=== PATIENT | male | born 1960 | race Caucasian/White ===

== ENCOUNTER 2016-10-04 10:25 | Emergency (ER) | payer MEDICARE, MEDICAID ==
[2016-10-04 10:39] VITALS: BP 180/101
--- NOTE | 2016-10-04 11:03 | EDM.PDOC ---
ED HPI GENERAL MEDICAL PROBLEM - General Chief Complaint: Lower Extremity Injury/Pain Stated Complaint: LEFT FOOT SWOLLEN/INFECTED Time Seen by Provider: 10/04/16 10:57 Source of Information: Reports: Patient History Limitations: Reports: No Limitations - History of Present Illness INITIAL COMMENTS - FREE TEXT/NARRATIVE: 56 yo male presents with open wound to the right great toe. Has drainage in between toes bilaterally. States that it has been there for " a couple days." unable to give specific time. Denies pain however states that foot is swollen. NO other complaints. Onset: Gradual, Unknown/Unsure Duration: Constant Location: Reports: Lower Extremity, Right Improves with: Reports: None Worsens with: Reports: None Associated Symptoms: Reports: No Other Symptoms Right Feet Pain Score (Numeric/FACES): 4 - Related Data Allergies Allergy/AdvReac Type Severity Reaction Status Date / Time Penicillins Allergy Cannot Verified 11/20/15 20:23 Remember Home Meds: Home Meds Aspirin [Halfprin] 81 mg PO BRK 11/20/15 [History] Metoprolol Succinate [Toprol XL 100mg] 100 mg PO DAILY 11/20/15 [History] Metoprolol Succinate [Toprol XL 50mg] 50 mg PO DAILY 11/20/15 [History] Potassium Chloride [Klor-Con] 20 meq PO BID 11/20/15 [History] amLODIPine [Norvasc] 10 mg PO BEDTIME 11/20/15 [History] atorvaSTATin [Lipitor] 10 mg PO BEDTIME 11/20/15 [History] Magnesium Oxide 500 mg PO BIDM #14 tablet 11/24/15 [Rx] Phosphorus #1 [Neutra-Phos] 500 mg PO BID #14 tablet 11/24/15 [Rx] Past Medical History Cardiovascular History: Reports: Heart Murmur, High Cholesterol, Hypertension Respiratory History: Reports: None Gastrointestinal History: Reports: Other (See Below) Other Gastrointestinal History: intractable nausea 11/20/15 Musculoskeletal History: Reports: Fracture Neurological History: Reports: Other (See Below) Other Neuro History: mentally handicapped. ] Psychiatric History: Reports: Anxiety, Developmental Delay - Past Surgical History Respiratory Surgical History: Reports: None Musculoskeletal Surgical History: Reports: None - History Comment History Comment: recent dx hypokalemia with potassium supplementation Social & Family History - Tobacco Use Smoking Status *Q: Never Smoker Second Hand Smoke Exposure: No - Caffeine Use Caffeine Use: Reports: Soda - Recreational Drug Use Recreational Drug Use: No Review of Systems - Review of Systems Review Of Systems: ROS reveals no pertinent complaints other than HPI. ED EXAM, GENERAL - Physical Exam Exam: See Below Exam Limited By: No Limitations General Appearance: Alert, WD/WN, No Apparent Distress Respiratory/Chest: No Respiratory Distress, Lungs Clear, Normal Breath Sounds, No Accessory Muscle Use, Chest Non-Tender, Wheezing (mild) Cardiovascular: Normal Peripheral Pulses, Regular Rate, Rhythm, No Edema, No Gallop, No JVD, No Murmur, No Rub Extremities: Normal Inspection, Normal Range of Motion, Non-Tender, Normal Capillary Refill, Pedal Edema (1+) Neurological: Alert, Oriented, CN II-XII Intact, Normal Cognition, Normal Gait, No Motor/Sensory Deficits Skin Exam: Warm, Dry, Normal Color, No Rash, Erythema (in between toes), Wound/ Incision (open wound to medial great toe, appears to be vesicle that burst. no drainage noted. ) Course - Vital Signs Last Recorded V/S: Last Vital Signs Temp 97.2 F 10/04/16 10:38 Pulse 88 10/04/16 10:38 Resp 16 10/04/16 10:38 BP 180/101 H 10/04/16 10:38 Pulse Ox 98 10/04/16 10:38 Departure - Departure Time of Disposition: 11:09 Disposition: Home, Self-Care 01 Condition: Good Clinical Impression: Tinea pedis of right foot - Discharge Information Instructions: Athlete's Foot, [id number], Personal Hygiene Forms: ED Department Discharge Additional Instructions: Make sure to keep your feet clean and dry. Apply the ointment to the open wound on your right big toe. Apply the cream in between all your toes. Return for worsening symptoms.
[2016-10-04] MEDS ORDERED: Bacitracin Oint 1 GM U/D Packet TOP ONE (11:05)
== END 2016-10-04 11:18 | disposition home or self-care (01) ==
LOC: DL.ED 10:25
DX: B35.3 Tinea pedis (principal); E78.00 Pure hypercholesterolemia, unspecified; I10 Essential (primary) hypertension; Z88.0 Allergy status to penicillin; Z79.82 Long term (current) use of aspirin; Z79.899 Other long term (current) drug therapy
CPT/HCPCS: 99282; 99283

== ENCOUNTER 2017-07-29 23:34 | Emergency (ER) | payer MEDICARE, MEDICAID ==
[2017-07-30] MEDS ORDERED: Sodium Chloride 0.9% 1,000 ML IV ONE (01:04)
[2017-07-30] MEDS ORDERED: Metoclopramide 10 MG/2 ML SDV IVPUSH ONE (01:05)
[2017-07-30 01:10] VITALS: BP 138/88
[2017-07-30] MEDS ORDERED: LORazepam 2 MG/ML Syringe IVPUSH ONE (01:12)
[2017-07-30 01:49] LABS: CHLORIDE,CL 99 mmol/L (101-111); SODIUM,NA 135 mmol/L (135-145)
[2017-07-30] MEDS ORDERED: Iopamidol 612 MG/ML 75 ML Bottle IVPUSH ONE (01:54)
--- NOTE | 2017-07-30 03:14 | EDM.PDOC ---
ED HPI GENERAL MEDICAL PROBLEM - General Chief Complaint: Gastrointestinal Problem Stated Complaint: SICK [id number] Time Seen by Provider: 07/30/17 01:15 Source of Information: Reports: Patient, Family History Limitations: Reports: Other (cognitive impairment) - History of Present Illness INITIAL COMMENTS - FREE TEXT/NARRATIVE: ED with nephew, reports patient has been "sick since yesterday, frequent retching. Patient hx of "mental handicap. Lives with parents, who are in poor health. Limited medical hx known. - Related Data Allergies Allergy/AdvReac Type Severity Reaction Status Date / Time Penicillins Allergy Cannot Verified 07/30/17 01:01 Remember Home Meds: Home Meds Aspirin [Halfprin] 81 mg PO BRK 11/20/15 [History] Metoprolol Succinate [Toprol XL 100mg] 100 mg PO DAILY 11/20/15 [History] Metoprolol Succinate [Toprol XL 50mg] 50 mg PO DAILY 11/20/15 [History] Potassium Chloride [Klor-Con] 20 meq PO BID 11/20/15 [History] amLODIPine [Norvasc] 10 mg PO BEDTIME 11/20/15 [History] atorvaSTATin [Lipitor] 10 mg PO BEDTIME 11/20/15 [History] Magnesium Oxide 500 mg PO BIDM #14 tablet 11/24/15 [Rx] Phosphorus #1 [Neutra-Phos] 500 mg PO BID #14 tablet 11/24/15 [Rx] Past Medical History Cardiovascular History: Reports: Heart Murmur, High Cholesterol, Hypertension Respiratory History: Reports: None Gastrointestinal History: Reports: Other (See Below) Other Gastrointestinal History: intractable nausea 11/20/15 Musculoskeletal History: Reports: Fracture Neurological History: Reports: Other (See Below) Other Neuro History: mentally handicapped Psychiatric History: Reports: Anxiety, Developmental Delay - Past Surgical History Respiratory Surgical History: Reports: None Musculoskeletal Surgical History: Reports: None - History Comment History Comment: recent dx hypokalemia with potassium supplementation Social & Family History - Family History Family Medical History: Noncontributory - Tobacco Use Smoking Status *Q: Unknown Ever Smoked - Caffeine Use Caffeine Use: Reports: Soda - Recreational Drug Use Recreational Drug Use: No ED ROS GENERAL - Review of Systems Review Of Systems: See Below Constitutional: Reports: Decreased Appetite HEENT: Reports: No Symptoms Respiratory: Reports: No Symptoms Cardiovascular: Reports: No Symptoms GI/Abdominal: Reports: Decreased Appetite, Vomiting : Reports: No Symptoms Musculoskeletal: Reports: No Symptoms Skin: Reports: No Symptoms Neurological: Reports: No Symptoms ED EXAM, GI/ABD - Physical Exam Exam: See Below Exam Limited By: No Limitations General Appearance: Alert, Moderate Distress (retching) Ears: Normal External Exam, Normal TMs Nose: Normal Inspection Throat/Mouth: Normal Inspection, Normal Lips Head: Atraumatic, Normocephalic Neck: Normal Inspection, Full Range of Motion Respiratory/Chest: No Respiratory Distress, Lungs Clear, Normal Breath Sounds Cardiovascular: Normal Peripheral Pulses, Regular Rate, Rhythm GI/Abdominal Exam: Tender (RLQ, epigastric). No: Distended, Rigid Back Exam: Normal Inspection, Full Range of Motion. No: CVA Tenderness (L), CVA Tenderness (R) Neurological: Alert, Oriented (person) Skin Exam: Warm, Dry, Intact, Normal Color Course - Vital Signs Last Recorded V/S: Last Vital Signs Temp 97.7 F 07/30/17 01:09 Pulse 79 07/30/17 01:09 Resp 20 07/30/17 01:09 BP 138/88 07/30/17 01:09 Pulse Ox 96 07/30/17 01:09 - Orders/Labs/Meds Orders: Active Orders 24 hr Category Date Time Status Blood Glucose Check, Bedside [RC] ONETIME Care 07/30/17 01:01 Active EKG Documentation Completion [RC] URGENT Care 07/30/17 01:01 Active Labs: Laboratory Tests 07/30/17 07/30/17 07/30/17 Range/Units 01:18 01:18 01:18 WBC 19.1 H (5.0-10.0) 10^3/uL RBC 5.16 (4.6-6.2) 10^6/uL Hgb 16.0 D (14.0-18.0) g/dL Hct 45.1 (40.0-54.0) % MCV 87.4 (80-100) fL MCH 31.0 (27.0-34.0) pg MCHC 35.5 H (33.0-35.0) g/dL Plt Count 193 (150-450) 10^3/uL Neut % (Auto) 89.9 H (42.2-75.2) % Lymph % (Auto) 3.3 L (20.5-50.1) % [place] % (Auto) 6.6 (2-8) % Eos % (Auto) 0.1 L (1.0-3.0) % Baso % (Auto) 0.1 (0.0-1.0) % Sodium 135 (135-145) mmol/L Potassium 3.7 (3.6-5.0) mmol/L Chloride 99 L (101-111) mmol/L Carbon Dioxide 27.0 (21.0-31.0) mmol/L Anion Gap 12.7 BUN 14 (7-18) mg/dL Creatinine 1.1 (0.6-1.3) mg/dL Est Cr Clr Drug Dosing 78.35 mL/min Estimated GFR (MDRD) > 60 BUN/Creatinine Ratio 12.72 Glucose 162 H (74-105) mg/dL POC Glucose (70-105) mg/dl Lactic Acid 1.6 (0.5-2.2) mmol/L Calcium 8.9 (8.4-10.2) mg/dl Magnesium (1.8-2.5) mg/dL Total Bilirubin 1.2 H (0.2-1.0) mg/dL AST 26 (10-42) IU/L ALT 25 (10-60) IU/L Alkaline Phosphatase 119 (42-121) IU/L Troponin I < 0.02 (0.00-0.02) ng/ml Total Protein 8.3 H (6.7-8.2) g/dl Albumin 4.7 (3.2-5.5) g/dl Globulin 3.6 Albumin/Globulin Ratio 1.31 Amylase 55 (28-100) U/L Lipase 20 L (22-51) U/L 07/30/17 07/30/17 Range/Units 01:18 01:35 WBC (5.0-10.0) 10^3/uL RBC (4.6-6.2) 10^6/uL Hgb (14.0-18.0) g/dL Hct (40.0-54.0) % MCV (80-100) fL MCH (27.0-34.0) pg MCHC (33.0-35.0) g/dL Plt Count (150-450) 10^3/uL Neut % (Auto) (42.2-75.2) % Lymph % (Auto) (20.5-50.1) % [place] % (Auto) (2-8) % Eos % (Auto) (1.0-3.0) % Baso % (Auto) (0.0-1.0) % Sodium (135-145) mmol/L Potassium (3.6-5.0) mmol/L Chloride (101-111) mmol/L Carbon Dioxide (21.0-31.0) mmol/L Anion Gap BUN (7-18) mg/dL Creatinine (0.6-1.3) mg/dL Est Cr Clr Drug Dosing mL/min Estimated GFR (MDRD) BUN/Creatinine Ratio Glucose (74-105) mg/dL POC Glucose 148 H (70-105) mg/dl Lactic Acid (0.5-2.2) mmol/L Calcium (8.4-10.2) mg/dl Magnesium 1.8 (1.8-2.5) mg/dL Total Bilirubin (0.2-1.0) mg/dL AST (10-42) IU/L ALT (10-60) IU/L Alkaline Phosphatase (42-121) IU/L Troponin I (0.00-0.02) ng/ml Total Protein (6.7-8.2) g/dl Albumin (3.2-5.5) g/dl Globulin Albumin/Globulin Ratio Amylase (28-100) U/L Lipase (22-51) U/L Meds: Medications Discontinued Medications Generic Name Dose Route Start Last Admin Trade Name Freq PRN Reason Stop Dose Admin Sodium Chloride 1,000 mls @ 999 mls/hr 07/30/17 01:04 07/30/17 01:27 Normal Saline IV 07/30/17 02:04 999 mls/hr .BOLUS ONE Administration Iopamidol 75 ml 07/30/17 01:54 07/30/17 02:03 Isovue-300 (61%) IVPUSH 07/30/17 01:55 75 ml ONETIME ONE Administration Lorazepam 1 mg 07/30/17 01:12 07/30/17 01:28 Ativan IVPUSH 07/30/17 01:13 1 mg ONETIME ONE Administration Metoclopramide HCl 10 mg 07/30/17 01:05 07/30/17 01:27 Reglan IVPUSH 07/30/17 01:06 10 mg ONETIME ONE Administration - Radiology Interpretation Free Text/Narrative:: CT abdomen and pelvis Acute appendicitis - Re-Assessments/Exams Free Text/Narrative Re-Assessment/Exam: 07/30/17 03:16 Retching stopped following reglan and ativan, patient resting, arouses easily. Family leftafter providing contact #'s. 07/30/17 03:36 Dr Fabiana Garcia accepting of patient in transfer. Tx via [facility]. Departure - Departure Time of Disposition: 04:10 Disposition: DC/Tfer to [facility] 02 Condition: Good Clinical Impression: Appendicitis - Discharge Information Referrals: PCP,None [Primary Care Provider] - Forms: ED Department Discharge - My Orders Last 24 Hours: My Active Orders 07/30/17 01:01 Blood Glucose Check, Bedside [RC] ONETIME EKG Documentation Completion [RC] URGENT - Assessment/Plan Last 24 Hours: My Active Orders 07/30/17 01:01 Blood Glucose Check, Bedside [RC] ONETIME EKG Documentation Completion [RC] URGENT
--- NOTE | 2017-07-31 13:17 | EKG ---
07/30/2017 - SAM WINN - FINDINGS: A 12-lead EKG shows normal sinus rhythm with no significant ST elevation or ST depression noted on this 12-lead EKG. Nonspecific ST-T wave changes mostly on lead II, possible lead misplacement, suggestive of left ventricular hypertrophy. [facility] /[id number]
== END 2017-07-30 04:13 ==
LOC: DL.ED 23:34
DX: K37 Unspecified appendicitis (principal); E78.00 Pure hypercholesterolemia, unspecified; I10 Essential (primary) hypertension; Z88.0 Allergy status to penicillin; Z79.82 Long term (current) use of aspirin; Z79.899 Other long term (current) drug therapy
CPT/HCPCS: 36415; 74178; 80053; 82150; 82962; 83605; 83690; 83735; 84484; 85025; 93005; 96361; 96374; 96375; 99285; J2060; J2765; J7030; Q9967; 93010

== ENCOUNTER 2020-02-08 10:39 | Emergency (ER) | payer MEDICARE, MEDICAID ==
[2020-02-08 11:38] VITALS: BP 143/98; PULSE 128
--- NOTE | 2020-02-08 12:05 | EDM.PDOC ---
ED HPI GENERAL MEDICAL PROBLEM - General Chief Complaint: Gastrointestinal Problem Stated Complaint: UNKNOWN JUST WANTS TO GET CHECKED Time Seen by Provider: 02/08/20 11:50 Source of Information: Reports: Patient History Limitations: Reports: No Limitations - History of Present Illness INITIAL COMMENTS - FREE TEXT/NARRATIVE: This 59 yo male patient reports to the ED due to intermittent nausea/vomiting and abdominal pain. The patient reports his symptoms have been coming and going for the past couple of days. The patient reports he was in the [facility] this morning for a blood pressure check, but did not make an appointment to be seen. The patient reports his friends advised him to come to the ED for evaluation and treatment. Onset Date: 02/06/20 Duration: Intermittent Location: Reports: Abdomen Quality: Reports: Other Severity: Moderate Improves with: Reports: None Worsens with: Reports: None Context: Reports: Other Associated Symptoms: Reports: Nausea/Vomiting - Related Data Allergies Allergy/AdvReac Type Severity Reaction Status Date / Time Penicillins Allergy Cannot Verified 02/08/20 11:45 Remember Home Meds: Home Meds Aspirin [Halfprin] 81 mg PO BRK 11/20/15 [History] Metoprolol Succinate [Toprol XL 100mg] 100 mg PO DAILY 11/20/15 [History] Metoprolol Succinate [Toprol XL 50mg] 50 mg PO DAILY 11/20/15 [History] Potassium Chloride [Klor-Con] 20 meq PO BID 11/20/15 [History] amLODIPine [Norvasc] 10 mg PO BEDTIME 11/20/15 [History] atorvaSTATin [Lipitor] 10 mg PO BEDTIME 11/20/15 [History] Magnesium Oxide 500 mg PO BIDM #14 tablet 11/24/15 [Rx] Phosphorus #1 [Neutra-Phos] 500 mg PO BID #14 tablet 11/24/15 [Rx] Past Medical History HEENT History: Reports: Allergic Rhinitis Cardiovascular History: Reports: Heart Murmur, High Cholesterol, Hypertension Respiratory History: Reports: None Gastrointestinal History: Reports: Other (See Below) Other Gastrointestinal History: intractable nausea 11/20/15 Genitourinary History: Reports: None Musculoskeletal History: Reports: Fracture Neurological History: Reports: Other (See Below) Other Neuro History: mentally handicapped Psychiatric History: Reports: Anxiety, Developmental Delay Endocrine/Metabolic History: Reports: None Hematologic History: Reports: None Immunologic History: Reports: None Oncologic (Cancer) History: Reports: None Dermatologic History: Reports: None - Infectious Disease History Infectious Disease History: Reports: None - Past Surgical History Head Surgeries/Procedures: Reports: None Cardiovascular Surgical History: Reports: None Respiratory Surgical History: Reports: None GI Surgical History: Reports: Cholecystectomy Musculoskeletal Surgical History: Reports: None - History Comment History Comment: recent dx hypokalemia with potassium supplementation Social & Family History - Family History Family Medical History: No Pertinent Family History - Tobacco Use Tobacco Use Status *Q: Never Tobacco User - Caffeine Use Caffeine Use: Reports: None - Recreational Drug Use Recreational Drug Use: No ED ROS GENERAL - Review of Systems Review Of Systems: Comprehensive ROS is negative, except as noted in HPI. ED EXAM, GI/ABD - Physical Exam Exam: See Below Exam Limited By: No Limitations General Appearance: Alert, WD/WN, Mild Distress Eyes: Bilateral: Normal Appearance, EOMI Ears: Normal External Exam, Normal Canal, Hearing Grossly Normal, Normal TMs Nose: Normal Inspection, Normal Mucosa, No Blood Throat/Mouth: Normal Inspection, Normal Lips, Normal Teeth, Normal Gums, Normal Oropharynx, Normal Voice, No Airway Compromise Head: Atraumatic, Normocephalic Neck: Normal Inspection, Supple, Non-Tender, Full Range of Motion Respiratory/Chest: No Respiratory Distress, Lungs Clear, Normal Breath Sounds, No Accessory Muscle Use, Chest Non-Tender Cardiovascular: Normal Peripheral Pulses, Regular Rate, Rhythm, No Edema, No Gallop, No JVD, No Murmur, No Rub GI/Abdominal Exam: No Organomegaly, No Distention, No Abnormal Bruit, No Mass, Pelvis Stable, Tender (diffuse abdominal tenderness) (Male) Exam: Deferred Rectal (Males) Exam: Deferred Back Exam: Normal Inspection, Full Range of Motion, NT Extremities: Normal Inspection, Normal Range of Motion, Non-Tender, Normal Capillary Refill, No Pedal Edema Neurological: Alert, Oriented, CN II-XII Intact, Normal Cognition, Normal Gait, Normal Reflexes, No Motor/Sensory Deficits Psychiatric: Normal Affect, Normal Mood Skin Exam: Warm, Dry, Intact, Normal Color, No Rash Lymphatic: No Adenopathy Course - Vital Signs Last Recorded V/S: Last Vital Signs Temp 36.6 C 02/08/20 11:37 Pulse 128 H 02/08/20 11:37 Resp 18 02/08/20 11:37 BP 143/98 H 02/08/20 11:37 Pulse Ox 97 02/08/20 11:37 - Orders/Labs/Meds Orders: Active Orders 24 hr Category Date Time Status CULTURE BLOOD [BC] Stat Lab 02/08/20 11:49 Received Labs: Laboratory Tests 02/08/20 02/08/20 02/08/20 Range/Units 11:49 11:49 11:49 WBC 7.0 (5.0-10.0) 10^3/uL RBC 5.33 (4.6-6.2) 10^6/uL Hgb 16.6 (14.0-18.0) g/dL Hct 46.8 (40.0-54.0) % MCV 87.8 (80-100) fL MCH 31.1 (27.0-34.0) pg MCHC 35.5 H (33.0-35.0) g/dL Plt Count 238 (150-450) 10^3/uL Neut % (Auto) 71.7 (42.2-75.2) % Lymph % (Auto) 14.2 L (20.5-50.1) % [place] % (Auto) 9.8 H (2-8) % Eos % (Auto) 4.0 H (1.0-3.0) % Baso % (Auto) 0.3 (0.0-1.0) % Sodium 136 (136-145) mmol/L Potassium 3.4 L (3.5-5.1) mmol/L Chloride 99 (98-107) mmol/L Carbon Dioxide 25 (21-32) mmol/L Anion Gap 15.4 H (7-13) mEq/L BUN 16 (7-18) mg/dL Creatinine 1.12 (0.70-1.30) mg/dL Est Cr Clr Drug Dosing 72.77 mL/min Estimated GFR (MDRD) > 60 BUN/Creatinine Ratio 14.3 (No establ ref range) Glucose 126 H (74-99) mg/dL Lactic Acid 1.9 (0.4-2.0) mmol/L Calcium 8.9 (8.5-10.1) mg/dL Total Bilirubin 0.8 (0.2-1.0) mg/dL AST 21 (15-37) U/L ALT 40 (16-63) U/L Alkaline Phosphatase 110 (46-116) U/L C-Reactive Protein 0.4 (0.0-0.9) mg/dL Total Protein 8.3 H (6.4-8.2) g/dL Albumin 4.1 (3.4-5.0) g/dL Globulin 4.2 Albumin/Globulin Ratio 1.0 Amylase 56 (25-115) U/L Lipase 109 (73-393) U/L Urine Color (YELLOW) Urine Appearance (CLEAR) Urine pH (5.0-9.0) Ur Specific [place] (1.005-1.030) Urine Protein (NEGATIVE) Urine Glucose (UA) (NEGATIVE) Urine Ketones (NEGATIVE) Urine Occult Blood (NEGATIVE) Urine Nitrite (NEGATIVE) Urine Bilirubin (NEGATIVE) Urine Urobilinogen (0.2-1.0) mg/dL Ur Leukocyte Esterase (NEGATIVE) Urine Opiates Screen (NEGATIVE) Ur Oxycodone Screen (NEGATIVE) Urine Methadone Screen (NEGATIVE) Ur Barbiturates Screen (NEGATIVE) U Tricyclic Antidepress (NEGATIVE) Ur Phencyclidine Scrn (NEGATIVE) Ur Amphetamine Screen (NEGATIVE) U Methamphetamines Scrn (NEGATIVE) Urine MDMA Screen (NEGATIVE) U Benzodiazepines Scrn (NEGATIVE) Urine Cocaine Screen (NEGATIVE) U Marijuana (THC) Screen (NEGATIVE) SARS CoV-2 RNA Rapid ASHLEY (NEGATIVE) 02/08/20 02/08/20 02/08/20 Range/Units 12:38 12:38 12:55 WBC (5.0-10.0) 10^3/uL RBC (4.6-6.2) 10^6/uL Hgb (14.0-18.0) g/dL Hct (40.0-54.0) % MCV (80-100) fL MCH (27.0-34.0) pg MCHC (33.0-35.0) g/dL Plt Count (150-450) 10^3/uL Neut % (Auto) (42.2-75.2) % Lymph % (Auto) (20.5-50.1) % [place] % (Auto) (2-8) % Eos % (Auto) (1.0-3.0) % Baso % (Auto) (0.0-1.0) % Sodium (136-145) mmol/L Potassium (3.5-5.1) mmol/L Chloride (98-107) mmol/L Carbon Dioxide (21-32) mmol/L Anion Gap (7-13) mEq/L BUN (7-18) mg/dL Creatinine (0.70-1.30) mg/dL Est Cr Clr Drug Dosing mL/min Estimated GFR (MDRD) BUN/Creatinine Ratio (No establ ref range) Glucose (74-99) mg/dL Lactic Acid (0.4-2.0) mmol/L Calcium (8.5-10.1) mg/dL Total Bilirubin (0.2-1.0) mg/dL AST (15-37) U/L ALT (16-63) U/L Alkaline Phosphatase (46-116) U/L C-Reactive Protein (0.0-0.9) mg/dL Total Protein (6.4-8.2) g/dL Albumin (3.4-5.0) g/dL Globulin Albumin/Globulin Ratio Amylase (25-115) U/L Lipase (73-393) U/L Urine Color Dark yellow (YELLOW) Urine Appearance Slightly cloudy (CLEAR) Urine pH 6.0 (5.0-9.0) Ur Specific [place] >= 1.030 (1.005-1.030) Urine Protein Negative (NEGATIVE) Urine Glucose (UA) Negative (NEGATIVE) Urine Ketones Negative (NEGATIVE) Urine Occult Blood Negative (NEGATIVE) Urine Nitrite Negative (NEGATIVE) Urine Bilirubin Negative (NEGATIVE) Urine Urobilinogen 0.2 (0.2-1.0) mg/dL Ur Leukocyte Esterase Negative (NEGATIVE) Urine Opiates Screen Negative (NEGATIVE) Ur Oxycodone Screen Negative (NEGATIVE) Urine Methadone Screen Negative (NEGATIVE) Ur Barbiturates Screen Negative (NEGATIVE) U Tricyclic Antidepress Negative (NEGATIVE) Ur Phencyclidine Scrn Negative (NEGATIVE) Ur Amphetamine Screen Negative (NEGATIVE) U Methamphetamines Scrn Negative (NEGATIVE) Urine MDMA Screen Negative (NEGATIVE) U Benzodiazepines Scrn Negative (NEGATIVE) Urine Cocaine Screen Negative (NEGATIVE) U Marijuana (THC) Screen Negative (NEGATIVE) SARS CoV-2 RNA Rapid ASHLEY Negative (NEGATIVE) Departure - Departure Time of Disposition: 13:48 Disposition: Home, Self-Care 01 Condition: Fair Clinical Impression: Gastroenteritis - Discharge Information *PRESCRIPTION DRUG MONITORING PROGRAM REVIEWED*: Not Applicable *COPY OF PRESCRIPTION DRUG MONITORING REPORT IN PATIENT RAE: Not Applicable Instructions: Viral Gastroenteritis, Adult, [id number] Forms: ED Department Discharge Care Plan Goals: The patient was advised of the examination and lab results during the visit. The patient was encouraged to stick to a BRAT diet (bananas, rice, applesauce and toast) with small frequent sips of fluid. If the patient has any additional symptoms or concerns, the patient should either return to the emergency department or follow-up with his primary care facility. Sepsis Event Note (ED) - Evaluation Sepsis Screening Result: No Definite Risk - Focused Exam Vital Signs: Vital Signs Temp Pulse Resp BP Pulse Ox 02/08/20 11:37 36.6 C 128 H 18 143/98 H 97 - My Orders Last 24 Hours: My Active Orders 02/08/20 11:49 CULTURE BLOOD [BC] Stat - Assessment/Plan Last 24 Hours: My Active Orders 02/08/20 11:49 CULTURE BLOOD [BC] Stat
[2020-02-08 12:15] LABS: ANION GAP 15.4 mEq/L (7-13); CHLORIDE,CL 99 mmol/L (98-107); SODIUM,NA 136 mmol/L (136-145)
== END 2020-02-08 14:10 | disposition home or self-care (01) ==
LOC: DL.ED 10:39
DX: K52.9 Noninfective gastroenteritis and colitis, unspecified (principal); E78.00 Pure hypercholesterolemia, unspecified; I10 Essential (primary) hypertension; Z79.82 Long term (current) use of aspirin; Z79.899 Other long term (current) drug therapy; Z20.828 Contact with and (suspected) exposure to other viral communicable diseases; Z88.0 Allergy status to penicillin
CPT/HCPCS: 36415; 80053; 80305-QW; 81003; 82150; 83605; 83690; 85025; 86140; 87040; 99284; U0002

== ENCOUNTER 2020-07-28 14:17 | Emergency (ER) | payer MEDICARE, MEDICAID ==
[2020-07-28] MEDS ORDERED: Lidocaine 1% 30 ML SDV INJECT ONE (14:38)
[2020-07-28] MEDS ORDERED: Bacitracin Oint 1 GM U/D Packet TOP ONE (14:38)
[2020-07-28] MEDS ORDERED: Diphtheria,Pertussis(Acell),Tetanus Vaccine 0.5 ML Syringe IM ONE (14:38)
--- NOTE | 2020-07-28 14:38 | EDM.PDOC ---
ED HPI GENERAL MEDICAL PROBLEM - General Chief Complaint: General Stated Complaint: CUT HAND Time Seen by Provider: 07/28/20 14:30 Source of Information: Reports: Patient, Old Records, RN, RN Notes Reviewed History Limitations: Reports: No Limitations - History of Present Illness INITIAL COMMENTS - FREE TEXT/NARRATIVE: Pt presents to ER with c/o cut to right hand on a sewing machine just prior to arrival. Pt denies any other injury. Pt is unsure when his last Tetanus vaccine was. Onset: Today, Sudden Duration: Constant Location: Reports: Upper Extremity, Right Quality: Reports: Ache Severity: Mild Improves with: Reports: None Worsens with: Reports: None Associated Symptoms: Reports: No Other Symptoms - Related Data Allergies Allergy/AdvReac Type Severity Reaction Status Date / Time Penicillins Allergy Cannot Verified 02/08/20 11:45 Remember Home Meds: Home Meds Aspirin [Halfprin] 81 mg PO BRK 11/20/15 [History] Metoprolol Succinate [Toprol XL 100mg] 100 mg PO DAILY 11/20/15 [History] Metoprolol Succinate [Toprol XL 50mg] 50 mg PO DAILY 11/20/15 [History] Potassium Chloride [Klor-Con] 20 meq PO BID 11/20/15 [History] amLODIPine [Norvasc] 10 mg PO BEDTIME 11/20/15 [History] atorvaSTATin [Lipitor] 10 mg PO BEDTIME 11/20/15 [History] Magnesium Oxide 500 mg PO BIDM #14 tablet 11/24/15 [Rx] Phosphorus #1 [Neutra-Phos] 500 mg PO BID #14 tablet 11/24/15 [Rx] Past Medical History HEENT History: Reports: Allergic Rhinitis Cardiovascular History: Reports: Heart Murmur, High Cholesterol, Hypertension Respiratory History: Reports: None Gastrointestinal History: Reports: Other (See Below) Other Gastrointestinal History: intractable nausea 11/20/15 Genitourinary History: Reports: None Musculoskeletal History: Reports: Fracture Neurological History: Reports: Other (See Below) Other Neuro History: mentally handicapped Psychiatric History: Reports: Anxiety, Developmental Delay Endocrine/Metabolic History: Reports: None Hematologic History: Reports: None Immunologic History: Reports: None Oncologic (Cancer) History: Reports: None Dermatologic History: Reports: None - Infectious Disease History Infectious Disease History: Reports: None - Past Surgical History Head Surgeries/Procedures: Reports: None Cardiovascular Surgical History: Reports: None Respiratory Surgical History: Reports: None GI Surgical History: Reports: Cholecystectomy Musculoskeletal Surgical History: Reports: None - History Comment History Comment: recent dx hypokalemia with potassium supplementation Social & Family History - Family History Family Medical History: No Pertinent Family History - Caffeine Use Caffeine Use: Reports: None - Living Situation & Occupation Living situation: Reports: with Family Occupation: Disabled ED ROS GENERAL - Review of Systems Review Of Systems: Comprehensive ROS is negative, except as noted in HPI. ED EXAM, GENERAL - Physical Exam Exam: See Below Exam Limited By: No Limitations General Appearance: Alert, WD/WN, No Apparent Distress Throat/Mouth: Normal Inspection Head: Atraumatic, Normocephalic Neck: Normal Inspection Respiratory/Chest: No Respiratory Distress Cardiovascular: Normal Peripheral Pulses Extremities: Normal Range of Motion, Normal Capillary Refill, Other (Right hand has a 2.5cm linear laceration to depth of subcutaneous tissue, no FB, mild active bleeding.) Neurological: Alert, Oriented, No Motor/Sensory Deficits Psychiatric: Normal Mood Skin Exam: Warm, Dry, Normal Color ED GENERAL MEDICAL PROCEDURES - Laceration/Wound Repair Right Dorsal Hand Lac/wound length in cm: 2.5 Appearance: Subcutaneous, Linear Distal NVT: Neuro & Vascular Intact, No Tendon Injury Anesthetic Type: Local Local Anesthesia - Lidocaine (Xylocaine): 1% Plain Local Anesthetic Volume: 4cc Skin Prep: Chlorhexidine (Hibiciens), Saline Saline irrigation (cc's): 500 Exploration/Debridement/Repair: Wound Explored, In a Bloodless Field, Explored to Base, Minimal Debridement, Minimally Undermined Closed with: Sutures Suture Size: 3-0 # of Sutures: 6 Suture Type: Nylon, Interrupted Drain Placement: No Sterile Dressing Applied: Nurse Tetanus Status Addressed: Yes Complications: No Course - Vital Signs Last Recorded V/S: Last Vital Signs Temp 96.7 F L 07/28/20 14:28 Pulse 82 07/28/20 14:28 Resp 20 07/28/20 14:28 BP 177/106 H 07/28/20 14:28 Pulse Ox 99 07/28/20 14:28 - Orders/Labs/Meds Orders: Active Orders 24 hr Category Date Time Status Vaccines to be Administered [RC] PER UNIT ROUTINE Care 07/28/20 14:38 Active Meds: Medications Discontinued Medications Generic Name Dose Route Start Last Admin Trade Name Fermín PRN Reason Stop Dose Admin Bacitracin 1 dose 07/28/20 14:38 Bacitracin Oint 1 Gm U/D Packet TOP 07/28/20 14:39 ONETIME ONE Diphtheria/Tetanus/Acell Pertussis 0.5 ml 07/28/20 14:38 Diphtheria,Pertussis(Acell),Tetanus Vaccine 0.5 Ml Syringe IM 07/28/20 14:39 .ONCE ONE Lidocaine HCl 30 ml 07/28/20 14:38 Lidocaine 1% 30 Ml Sdv INJECT 07/28/20 14:39 ONETIME ONE Departure - Departure Time of Disposition: 15:01 Disposition: Home, Self-Care 01 Condition: Good Clinical Impression: Laceration of right hand Qualifiers: Encounter type: initial encounter Foreign body presence: without foreign body Qualified Code(s): S61.411A - Laceration without foreign body of right hand, initial encounter - Discharge Information *PRESCRIPTION DRUG MONITORING PROGRAM REVIEWED*: Not Applicable *COPY OF PRESCRIPTION DRUG MONITORING REPORT IN PATIENT RAE: Not Applicable Instructions: Laceration Care, Adult, [id number] Forms: ED Department Discharge Additional Instructions: Keep right hand wound clean and dry. Follow up with your primary doctor, or return to ER in 7 to 10 days for suture removal. Return to ER if any signs of wound infection develop. Sepsis Event Note (ED) - Focused Exam Vital Signs: Vital Signs Temp Pulse Resp BP Pulse Ox 07/28/20 14:28 96.7 F L 82 20 177/106 H 99 - My Orders Last 24 Hours: My Active Orders 07/28/20 14:38 Vaccines to be Administered [RC] PER UNIT ROUTINE - Assessment/Plan Last 24 Hours: My Active Orders 07/28/20 14:38 Vaccines to be Administered [RC] PER UNIT ROUTINE
[2020-07-28 14:46] VITALS: BP 177/106; PULSE 82
== END 2020-07-28 15:23 | disposition home or self-care (01) ==
LOC: DL.ED 14:17
DX: S61.412A Laceration without foreign body of left hand, initial encounter (principal); E78.00 Pure hypercholesterolemia, unspecified; I10 Essential (primary) hypertension; Z88.0 Allergy status to penicillin; Z79.82 Long term (current) use of aspirin; Z79.899 Other long term (current) drug therapy; Z23 Encounter for immunization; W26.8XXA Contact with other sharp object(s), not elsewhere classified, initial encounter
CPT/HCPCS: 12001; 90471; 90715; 99282-25; 99283

== ENCOUNTER 2020-09-22 10:27 | Emergency (ER) | payer MEDICARE, MEDICAID ==
[2020-09-22 10:58] VITALS: BP 202/114; PULSE 90
--- NOTE | 2020-09-22 11:13 | EDM.PDOC ---
ED HPI GENERAL MEDICAL PROBLEM - General Chief Complaint: ENT Problem Stated Complaint: PINK EYE Time Seen by Provider: 09/22/20 11:09 Source of Information: Reports: Patient History Limitations: Reports: No Limitations - History of Present Illness INITIAL COMMENTS - FREE TEXT/NARRATIVE: Patient is a unfortunate 60-year-old male who presents emerged part today with complaint of redness and drainage from his left eye. Patient reports symptoms started yesterday continue today this concerned the patient's who presented to emergency department for further evaluation. Denies any pain no fever no chills no visual disturbance - Related Data Allergies Allergy/AdvReac Type Severity Reaction Status Date / Time Penicillins Allergy Cannot Verified 09/22/20 10:55 Remember Home Meds: Home Meds Aspirin [Halfprin] 81 mg PO BRK 11/20/15 [History] Metoprolol Succinate [Toprol XL 100mg] 100 mg PO DAILY 11/20/15 [History] Metoprolol Succinate [Toprol XL 50mg] 50 mg PO DAILY 11/20/15 [History] Potassium Chloride [Klor-Con] 20 meq PO BID 11/20/15 [History] amLODIPine [Norvasc] 10 mg PO BEDTIME 11/20/15 [History] atorvaSTATin [Lipitor] 10 mg PO BEDTIME 11/20/15 [History] Magnesium Oxide 500 mg PO BIDM #14 tablet 11/24/15 [Rx] Phosphorus #1 [Neutra-Phos] 500 mg PO BID #14 tablet 11/24/15 [Rx] Polymyxin B Sulf/Trimethoprim [Polytrim Eye Drops] 1 drop EYELF Q4H 7 Days #1 bottle 09/22/20 [Rx] Past Medical History HEENT History: Reports: Allergic Rhinitis Cardiovascular History: Reports: Heart Murmur, High Cholesterol, Hypertension Respiratory History: Reports: None Gastrointestinal History: Reports: Other (See Below) Other Gastrointestinal History: intractable nausea 11/20/15 Genitourinary History: Reports: None Musculoskeletal History: Reports: Fracture Neurological History: Reports: Other (See Below) Other Neuro History: Developmental delay Psychiatric History: Reports: Anxiety, Developmental Delay Endocrine/Metabolic History: Reports: None Hematologic History: Reports: None Immunologic History: Reports: None Oncologic (Cancer) History: Reports: None Dermatologic History: Reports: None - Infectious Disease History Infectious Disease History: Reports: None - Past Surgical History Head Surgeries/Procedures: Reports: None HEENT Surgical History: Reports: None Cardiovascular Surgical History: Reports: None Respiratory Surgical History: Reports: None GI Surgical History: Reports: Cholecystectomy Musculoskeletal Surgical History: Reports: None - History Comment History Comment: recent dx hypokalemia with potassium supplementation Social & Family History - Family History Family Medical History: No Pertinent Family History - Tobacco Use Tobacco Use Status *Q: Never Tobacco User - Caffeine Use Caffeine Use: Reports: Soda - Recreational Drug Use Recreational Drug Use: No - Living Situation & Occupation Living situation: Reports: with Family Occupation: Disabled ED ROS GENERAL - Review of Systems Review Of Systems: See Below Constitutional: Denies: Fever, Chills HEENT: Reports: Eye Discharge. Denies: Eye Pain ED EXAM, DIZZINESS - Physical Exam Exam: See Below Exam Limited By: No Limitations General Appearance: Alert, WD/WN, Mild Distress Eye Exam: Left Eye: Other (Conjunctival discharge, injective conjunctiva) Respiratory/Chest: No Respiratory Distress, Lungs Clear, Normal Breath Sounds, No Accessory Muscle Use, Chest Non-Tender Cardiovascular: Normal Peripheral Pulses, Regular Rate, Rhythm, No Edema, No Gallop, No JVD, No Murmur, No Rub Neurological: Alert, Normal Mood/Affect, Normal Dorsiflexion, CN II-XII Intact, Normal Plantar Flexion, Normal Gait, Normal Reflexes, No Motor/Sensory Deficits, Oriented x 3 Back Exam: Normal Inspection, Full Range of Motion, NT Skin Exam: Warm, Dry, No Rash Course - Vital Signs Last Recorded V/S: Last Vital Signs Temp 97.7 F 09/22/20 10:56 Pulse 90 09/22/20 10:56 Resp 18 09/22/20 10:56 BP 202/114 H 09/22/20 10:56 Pulse Ox 98 09/22/20 10:56 Departure - Departure Time of Disposition: 11:11 Disposition: Home, Self-Care 01 Condition: Good Clinical Impression: Left conjunctivitis Qualifiers: Conjunctivitis type: acute Acute conjunctivitis type: unspecified Qualified Code(s): H10.32 - Unspecified acute conjunctivitis, left eye - Discharge Information *PRESCRIPTION DRUG MONITORING PROGRAM REVIEWED*: No *COPY OF PRESCRIPTION DRUG MONITORING REPORT IN PATIENT RAE: No Prescriptions: Polymyxin B Sulf/Trimethoprim [Polytrim Eye Drops] 1 drop EYELF Q4H 7 Days #1 bottle Additional Instructions: Home, rest, follow-up with your PCP in 1 week, do not rub your eye, return to the emergency department for any worsening condition Sepsis Event Note (ED) - Evaluation Sepsis Screening Result: No Definite Risk - Focused Exam Vital Signs: Vital Signs Temp Pulse Resp BP Pulse Ox 09/22/20 10:56 97.7 F 90 18 202/114 H 98
[2020-09-22] MEDS ORDERED: Polymyxin B/Trimethoprim 10 ML Bottle ONE (11:26)
== END 2020-09-22 11:30 | disposition home or self-care (01) ==
LOC: DL.ED 10:27
DX: H10.32 Unspecified acute conjunctivitis, left eye (principal); E78.00 Pure hypercholesterolemia, unspecified; I10 Essential (primary) hypertension; Z88.0 Allergy status to penicillin; Z79.82 Long term (current) use of aspirin; Z79.899 Other long term (current) drug therapy
CPT/HCPCS: 99282; A9270

== ENCOUNTER 2023-06-04 05:18 | Day surgery (SDC) | payer MEDICARE, MEDICAID ==
[2023-06-04] MEDS ORDERED: Midazolam 1 MG/ML 2 ML SDV IV ONE (05:19)
[2023-06-04] MEDS ORDERED: fentaNYL 100 MCG/2 ML SDV IV ONE (05:19)
[2023-06-04] MEDS: Dextrose 5%-0.45% NaCl 1,000 ML IV SCH (05:50)
[2023-06-04] MEDS ORDERED: Midazolam 1 MG/ML 2 ML SDV ONE (06:02)
[2023-06-04] MEDS ORDERED: fentaNYL 100 MCG/2 ML SDV ONE (06:03)
[2023-06-04] MEDS: fentaNYL 100 MCG/2 ML SDV IV ONE ×3 (06:21→06:22)
[2023-06-04] MEDS: Midazolam 1 MG/ML 2 ML SDV IV ONE ×4 (06:22→06:31)
[2023-06-04 07:39] VITALS: BP 105/58; PULSE 69
== END 2023-06-04 07:54 | disposition home or self-care (01) ==
LOC: DL.ENDO 05:18
PROVIDERS: ATTEND Internal Medicine Gastroenterology
DX: Z12.11 Encounter for screening for malignant neoplasm of colon (principal); K64.8 Other hemorrhoids; K57.30 Diverticulosis of large intestine without perforation or abscess without bleeding; I12.9 Hypertensive chronic kidney disease with stage 1 through stage 4 chronic kidney disease, or unspecified chronic kidney disease; N18.9 Chronic kidney disease, unspecified; D64.9 Anemia, unspecified; E66.9 Obesity, unspecified; Z68.34 Body mass index [BMI] 34.0-34.9, adult; F41.1 Generalized anxiety disorder; Z79.82 Long term (current) use of aspirin; Z79.899 Other long term (current) drug therapy
CPT/HCPCS: 88305; J2250; J3010; J7042

== ENCOUNTER 2024-01-14 11:25 | Emergency (ER) | payer MEDICAID, MEDICARE ==
[2024-01-14 12:42] LABS: BASOPHILS PERCENT AUTO 0.5 % (0.0-1.0); EOSINOPHILS PERCENT AUTO 1.9 % (1.0-3.0); HEMATOCRIT 21.5 % (40.0-54.0); LYMPHOCYTES PERCENT AUTO 17.3 % (20.5-50.1); MEAN CORPUSCULAR HEMOGLOBIN 28.5 pg (27.0-34.0); MEAN CORPUSCULAR HGB CONC 31.6 g/dL (33.0-35.0); MONOCYTES PERCENT AUTO 6.5 % (2-8); NEUTROPHILS PERCENT AUTO 73.8 % (42.2-75.2); PLATELET COUNT,PLT 291 10^3/uL (150-450); RED BLOOD CELL COUNT 2.39 10^6/uL (4.6-6.2); WHITE BLOOD CELL COUNT,WBC 2.1 10^3/uL (5.0-10.0)
[2024-01-14 12:46] LABS: HEMOGLOBIN 6.8 g/dL (14.0-18.0)
[2024-01-14 12:59] LABS: PROTHROMBIN TIME 10.8 SEC (9.0-12.0); PTT,PARTIAL THROMBOPLSTIN TIME 41.3 SEC (22.0-34.0)
[2024-01-14 13:06] LABS: LACTIC ACID 1.4 mmol/L (0.4-2.0)
[2024-01-14 13:12] LABS: ALBUMIN 2.8 g/dL (3.4-5.0); ANION GAP 12.1 mEq/L (7-13); BILIRUBIN TOTAL 0.7 mg/dL (0.2-1.0); BUN/CREATININE RATIO 10.7 (No establ ref range); CALCIUM 9.3 mg/dL (8.5-10.1); CREATININE 4.39 mg/dL (0.70-1.30); EST CRCL DRUG DOSING (CG) 17.67 mL/min; MAGNESIUM 1.7 mg/dL (1.8-2.4); POTASSIUM,K 4.1 mmol/L (3.5-5.1); PROTEIN TOTAL,TP 8.4 g/dL (6.4-8.2)
[2024-01-14 13:16] LABS: A/G RATIO 0.5
[2024-01-14] MEDS ORDERED: Furosemide 40 MG/4 ML VIAL IVPUSH ONE (13:19)
[2024-01-14] MEDS ORDERED: Sodium Chloride 0.9% 10 ML Syringe FLUSH ONE (13:19)
[2024-01-14] MEDS ORDERED: diphenhydrAMINE 50 MG/ML SDV IV ONE (13:19)
[2024-01-14 13:36] LABS: HEMATOCRIT 22.5 % (40.0-54.0); HEMOGLOBIN 7.1 g/dL (14.0-18.0)
[2024-01-14 14:17] LABS: APPEARANCE,URINE SLIGHTLY CLOUDY (CLEAR); BILIRUBIN,URINE NEGATIVE (NEGATIVE); COLOR,URINE YELLOW (YELLOW); GLUCOSE,URINE NEGATIVE (NEGATIVE); KETONES,URINE NEGATIVE (NEGATIVE); LEUKOCYTE ESTERASE,URINE NEGATIVE (NEGATIVE); NITRITE,URINE NEGATIVE (NEGATIVE); OCCULT BLOOD,URINE LARGE (NEGATIVE); PROTEIN,URINE 100 (NEGATIVE); UROBILINOGEN,URINE 0.2 mg/dL (0.2-1.0)
[2024-01-14 14:23] LABS: AMPHETAMINES,URINE NEGATIVE (NEGATIVE); BARBITURATES,URINE NEGATIVE (NEGATIVE); BENZODIAZEPINE,URINE NEGATIVE (NEGATIVE); MDMA (ECSTASY), URINE NEGATIVE (NEGATIVE); METHADONE,URINE NEGATIVE (NEGATIVE); METHAMPHETAMINES,URINE NEGATIVE (NEGATIVE); OPIATES,URINE NEGATIVE (NEGATIVE); OXYCODONE,URINE NEGATIVE (NEGATIVE); PHENCYCLIDINE,URINE NEGATIVE (NEGATIVE); TCA,URINE NEGATIVE (NEGATIVE)
[2024-01-14 14:30] LABS: BACTERIA,URINE FEW /HPF (0-FEW/HPF); EPITHELIAL CELLS,URINE OCCASIONAL /HPF (NOT SEEN); RBC,URINE 50-75 /HPF (0-5); WBC,URINE 0-5 /HPF (0-5/HPF)
[2024-01-14 14:31] LABS: MUCUS,URINE RARE /LPF (NOT SEEN)
[2024-01-14] MEDS ORDERED: Famotidine 20 MG/2 ML SDV IVPUSH ONE (15:59)
[2024-01-14 17:22] VITALS: PULSE 76
[2024-01-14 17:44] VITALS: BP 132/73
== END 2024-01-14 18:20 ==
LOC: DL.ED 11:25
DX: N19 Unspecified kidney failure (principal); D64.9 Anemia, unspecified; I10 Essential (primary) hypertension; E78.00 Pure hypercholesterolemia, unspecified; Z88.0 Allergy status to penicillin; Z79.82 Long term (current) use of aspirin; Z79.899 Other long term (current) drug therapy
CPT/HCPCS: 36415; 36430; 80053; 80305-QW; 81001; 82272; 82947; 83605; 83735; 83880; 84484; 85014; 85018; 85025; 85610; 85730; 86850; 86900; 86901; 86920; 86922; 96365; 99285; 99285-25; J3475; P9016

== ENCOUNTER 2024-02-08 03:02 | Emergency (ER) | payer MEDICARE, OTHER ==
[2024-02-08] MEDS: Sodium Chloride 0.9% 1,000 ML IV ONE (03:40)
[2024-02-08] MEDS: diphenhydrAMINE 50 MG/ML SDV IVPUSH ONE (03:40)
[2024-02-08 03:41] LABS: BASOPHILS PERCENT AUTO 0.2 % (0.0-1.0); LYMPHOCYTES PERCENT AUTO 4.8 % (20.5-50.1); MEAN CORPUSCULAR HEMOGLOBIN 30.8 pg (27.0-34.0); MEAN CORPUSCULAR HGB CONC 32.4 g/dL (33.0-35.0); MONOCYTES PERCENT AUTO 7.5 % (2-8); NEUTROPHILS PERCENT AUTO 87.5 % (42.2-75.2); PLATELET COUNT,PLT 137 10^3/uL (150-450); RED BLOOD CELL COUNT 2.21 10^6/uL (4.6-6.2); WHITE BLOOD CELL COUNT,WBC 4.1 10^3/uL (5.0-10.0)
[2024-02-08] MEDS: methylPREDNISolone Sodium Succinate 125 MG/2 ML SDV IVPUSH ONE (03:41)
[2024-02-08] MEDS: Famotidine 20 MG/2 ML SDV IVPUSH ONE (03:42)
[2024-02-08 03:54] LABS: HEMOGLOBIN 6.8 g/dL (14.0-18.0)
[2024-02-08 04:04] LABS: ALBUMIN 2.2 g/dL (3.4-5.0); ANION GAP 11.1 mEq/L (7-13); BILIRUBIN TOTAL 0.7 mg/dL (0.2-1.0); BUN/CREATININE RATIO 23.1 (No establ ref range); CALCIUM 7.7 mg/dL (8.5-10.1); CREATININE 4.25 mg/dL (0.70-1.30); EST CRCL DRUG DOSING (CG) 18.25 mL/min; POTASSIUM,K 4.1 mmol/L (3.5-5.1); PROTEIN TOTAL,TP 4.8 g/dL (6.4-8.2)
[2024-02-08 04:08] LABS: A/G RATIO 0.85
[2024-02-08] MEDS: Calcium Chloride 10% 1 GM/10 ML Syringe IVPUSH ONE (04:56)
[2024-02-08] MEDS: Labetalol 100 MG Tab PO ONE (06:10)
[2024-02-08] MEDS: Furosemide 20 MG/2 ML VIAL IVPUSH ONE (08:28)
[2024-02-08 10:41] VITALS: BP 186/101; PULSE 67
== END 2024-02-08 10:42 | disposition home or self-care (01) ==
LOC: DL.ED 03:02
DX: T78.40XA Allergy, unspecified, initial encounter (principal); D64.9 Anemia, unspecified; E83.51 Hypocalcemia; I12.9 Hypertensive chronic kidney disease with stage 1 through stage 4 chronic kidney disease, or unspecified chronic kidney disease; N18.9 Chronic kidney disease, unspecified; E78.00 Pure hypercholesterolemia, unspecified; Z90.49 Acquired absence of other specified parts of digestive tract; Z88.0 Allergy status to penicillin; Z79.82 Long term (current) use of aspirin; Z79.52 Long term (current) use of systemic steroids; Z79.899 Other long term (current) drug therapy
CPT/HCPCS: 36415; 36430; 80053; 85025; 86850; 86900; 86901; 86920; 86922; 93005; 93010; 96374; 96375; 99283-25; 99284; A9270-GY; J1200; J1940; J2919; J3490; J7030; P9016

== ENCOUNTER 2024-02-14 16:02 | Emergency (ER) | payer MEDICARE, OTHER ==
[2024-02-14] MEDS ORDERED: Sodium Chloride 0.9% 10 ML Syringe FLUSH PRN (16:18)
[2024-02-14] MEDS: Albuterol/Ipratropium 3.0-0.5 MG/3 ML Neb Soln NEB ONE (16:30)
[2024-02-14 16:37] LABS: HEMATOCRIT 26.9 % (40.0-54.0); HEMOGLOBIN 8.7 g/dL (14.0-18.0); MEAN CORPUSCULAR HEMOGLOBIN 30.6 pg (27.0-34.0); MEAN CORPUSCULAR HGB CONC 32.3 g/dL (33.0-35.0); MEAN CORPUSCULAR VOLUME 94.7 fL (80-100); PLATELET COUNT,PLT 137 10^3/uL (150-450); RED BLOOD CELL COUNT 2.84 10^6/uL (4.6-6.2); WHITE BLOOD CELL COUNT,WBC 5.4 10^3/uL (5.0-10.0)
[2024-02-14 16:43] LABS: BASOPHILS PERCENT AUTO 0.2 % (0.0-1.0); EOSINOPHILS PERCENT AUTO 0.2 % (1.0-3.0); LYMPHOCYTES PERCENT AUTO 1.5 % (20.5-50.1); MONOCYTES PERCENT AUTO 3.7 % (2-8); NEUTROPHILS PERCENT AUTO 94.4 % (42.2-75.2)
[2024-02-14 16:57] LABS: ALBUMIN 2.6 g/dL (3.4-5.0); ANION GAP 16.4 mEq/L (7-13); BILIRUBIN TOTAL 0.9 mg/dL (0.2-1.0); BUN/CREATININE RATIO 21.6 (No establ ref range); C-REACTIVE PROTEIN 0.97 ng/dL (<=0.50); CALCIUM 7.3 mg/dL (8.5-10.1); CREATININE 4.35 mg/dL (0.70-1.30); EST CRCL DRUG DOSING (CG) 17.83 mL/min; POTASSIUM,K 4.4 mmol/L (3.5-5.1); PROTEIN TOTAL,TP 5.3 g/dL (6.4-8.2)
[2024-02-14 16:58] LABS: A/G RATIO 0.96
[2024-02-14 17:00] LABS: LACTIC ACID 2.8 mmol/L (0.4-2.0)
[2024-02-14] MEDS: Sodium Chloride 0.9% 1,000 ML IV ONE (17:08)
[2024-02-14 17:09] LABS: PROTHROMBIN TIME 9.9 SEC (9.0-12.0); PTT,PARTIAL THROMBOPLSTIN TIME 23.9 SEC (22.0-34.0)
[2024-02-14 17:26] LABS: APPEARANCE,URINE SLIGHTLY CLOUDY (CLEAR); BILIRUBIN,URINE NEGATIVE (NEGATIVE); COLOR,URINE DARK YELLOW (YELLOW); GLUCOSE,URINE 100 (NEGATIVE); KETONES,URINE NEGATIVE (NEGATIVE); LEUKOCYTE ESTERASE,URINE NEGATIVE (NEGATIVE); NITRITE,URINE NEGATIVE (NEGATIVE); OCCULT BLOOD,URINE LARGE (NEGATIVE); PROTEIN,URINE 100 (NEGATIVE); UROBILINOGEN,URINE 0.2 mg/dL (0.2-1.0)
[2024-02-14] MEDS: VANCOmycin 1.5 GM in Sodium Chloride 0.9% 250 ML IV ONE (17:26)
[2024-02-14 17:30] LABS: BAND PERCENT MAN 3 %; LYMPHOCYTES PERCENT MAN 3 % (20-50); MONOCYTES PERCENT MAN 3 % (2-8); SEG NEUTROPHILS PERCENT MAN 91 % (42-75)
[2024-02-14 17:33] LABS: BACTERIA,URINE FEW /HPF (0-FEW/HPF); EPITHELIAL CELLS,URINE FEW /HPF (NOT SEEN); RBC,URINE >100 /HPF (0-5); WBC,URINE 0-5 /HPF (0-5/HPF)
[2024-02-14 18:22] VITALS: BP 183/100; PULSE 100
[2024-02-14] MEDS: VANCOmycin 500 MG SDV ONE (18:44)
== END 2024-02-14 18:18 ==
LOC: DL.ED 16:02
DX: U07.1 COVID-19 (principal); A41.9 Sepsis, unspecified organism; J12.82 Pneumonia due to coronavirus disease 2019; E87.20 Acidosis, unspecified; I10 Essential (primary) hypertension; E78.00 Pure hypercholesterolemia, unspecified; Z90.49 Acquired absence of other specified parts of digestive tract; Z88.0 Allergy status to penicillin; Z79.82 Long term (current) use of aspirin; Z79.52 Long term (current) use of systemic steroids; Z79.899 Other long term (current) drug therapy
CPT/HCPCS: 36415; 71045; 80053; 81001; 83605; 84145; 84484; 85025; 85610; 85730; 86140; 87040; 87428; 93005; 96365; 99285; J7030; J7050; 93010; J7620-GY

== ENCOUNTER 2024-12-02 07:25 | Emergency (ER) | payer MEDICARE, MEDICAID ==
[2024-12-02 09:41] VITALS: PULSE 93
[2024-12-02 09:42] VITALS: BP 97/63
== END 2024-12-02 10:03 | disposition home or self-care (01) ==
LOC: DL.ED 07:25
DX: T82.49XA Other complication of vascular dialysis catheter, initial encounter (principal); I12.0 Hypertensive chronic kidney disease with stage 5 chronic kidney disease or end stage renal disease; N18.6 End stage renal disease; E78.00 Pure hypercholesterolemia, unspecified; Z88.0 Allergy status to penicillin; Z79.82 Long term (current) use of aspirin; Z79.899 Other long term (current) drug therapy; Z99.2 Dependence on renal dialysis
CPT/HCPCS: 71045; 96365; 99284; J3373; J7050